=== PATIENT | female | born 1970 | race Two or more races ===

== ENCOUNTER 2020-04-24 14:46 | Inpatient (IN) | payer MEDICAID ==
[~2020-04-24] VITALS: Ht 162.6 cm; Wt 116.3 kg
[2020-04-24 16:15] LABS: Basophils # (auto) 0 10 ^3/uL (0-0.2); Basophils % (auto) 0.6 % (0.0-2.0); Eosinophils # (auto) 0 10 ^3/uL (0-0.8); Eosinophils % (auto) 0.5 % (0.0-7.0); Hematocrit 39.7 % (36.0-46.0); Hemoglobin 12.8 g/dL (12.2-16.2); Lymphocytes # (auto) 1.8 10 ^3/uL (0.4-5.4); Lymphocytes % (auto) 27.9 % (10.0-50.0); Mean Corpuscular Hemoglobin 28.2 pg (28.0-32.0); Mean Corpuscular Hgb Conc. 32.3 g/dL (32.0-36.0); Mean Corpuscular Volume 87.4 fL (80.0-100.0); Monocytes # (auto) 0.6 10 ^3/uL (0-1.3); Monocytes % (auto) 9.3 % (0.0-12.0); Neutrophils # (auto) 3.9 10 ^3/uL (1.6-8.6); Neutrophils % (auto) 61.7 % (37.0-80.0); Nucleated Red Blood Cells % 0.1 %; Platelet Count (auto) 181 10^3/uL (140-450); Red Blood Cells 4.54 10^6/uL (4.0-5.20); Red Cell Distribution Width 15.7 % (11.8-14.3); White Blood Cell 6.3 10^3/uL (4.4-10.8)
[2020-04-24 16:33] LABS: Albumin 3.2 g/dL (3.4-5.0); Anion Gap 8 (5-15); Aspartate Aminotransferase 71 U/L (15-37); BUN/Creatinine Ratio 5.6; Blood Urea Nitrogen 5 mg/dL (7-18); Calcium 8.4 mg/dL (8.5-10.1); Carbon Dioxide 26 mmol/L (21-32); Chloride 104 mmol/L (98-107); GFR African American 85 mL/min; GFR Non-African American 70 mL/min; Glucose 238 mg/dL (74-106); Magnesium 2.2 mg/dL (1.6-2.6); Potassium 3.3 mmol/L (3.5-5.1); Sodium 138 mmol/L (136-145)
[2020-04-24 16:41] LABS: Alanine Aminotransferase 103 U/L (13-56); Alkaline Phosphatase 179 U/L (45-117); Bilirubin, Total 0.5 mg/dL (0.2-1.0); Total Protein 7.5 g/dL (6.4-8.2)
[2020-04-24] MEDS ORDERED: DOXYCYCLINE 100 MG TAB/CAP PO ONE (17:45)
[2020-04-24] MEDS ORDERED: POTASSIUM CHL 20 Meq TABLET PO ONE (17:45)
[2020-04-24] MEDS ORDERED: ACETAMINOPHEN 325 MG TAB PO ONE (17:45)
[2020-04-24] MEDS ORDERED: SODIUM CHLORIDE 0.9% 1,000 ML IVB ONE (17:55)
[2020-04-24] MEDS ORDERED: ASCORBIC ACID 500 MG TAB PO ONE (18:00)
[2020-04-24] MEDS ORDERED: ZINC SULFATE 220mg CAP or TAB PO ONE (18:00)
[2020-04-24 20:46] LABS: INR 0.98 (0.9-1.15); Partial Thromboplastin Time 28.5 sec (23.0-31.2)
[2020-04-24] MEDS ORDERED: SODIUM CHLORIDE 0.9% 1,000 ML IV SCH (21:20)
[2020-04-24] MEDS ORDERED: ONDANSETRON HCL 4 MG/2 ML VIAL IV PRN (21:30)
[2020-04-24] MEDS ORDERED: MORPHINE SULF INJ 2 MG/ML SYRINGE 1ML IV PRN (21:30)
[2020-04-24] MEDS ORDERED: DOCUSATE SOD 100 MG CAP PO PRN (21:30)
[2020-04-24] MEDS ORDERED: ACETAMINOPHEN 325 MG TAB PO PRN (21:30)
[2020-04-24] MEDS ORDERED: ACETAMINOPHEN 500 MG TAB PO PRN (21:30)
[2020-04-24] MEDS ORDERED: DEXTROSE (50%) 50ML SYRG IV PRN (21:30)
[2020-04-24] MEDS ORDERED: HYDROcodone-ACET 5/325MG TAB PO PRN (21:30)
[2020-04-24] MEDS ORDERED: TEMAZEPAM 15 MG CAP PO PRN (21:30)
[2020-04-24] MEDS ORDERED: LORazepam 0.5 MG TAB PO PRN (21:30)
[2020-04-24] MEDS: DexAMETHasone SOD PHOS 10MG/1ML VIAL INJ IV SCH (21:45)
[2020-04-24] MEDS: ALBUTEROL SULF HFA 90MCG INH 200DOSE IN SCH (22:00)
[2020-04-24 22:10] VITALS: BP 176/94
--- NOTE | 2020-04-24 23:36 | NUR ---
Telemetry admit from ER KESHAWN BALLESTEROS admitted to Telemetry unit after SBAR received. Patient oriented to EBONIE MORALES RN primary RN, unit, room, bed, and unit policies regarding patient care and visiting hours. Patient now on continuous telemetry monitoring, tele box # 20 and telemetry reading on arrival to unit is SR 92 bpm. Patient weighed by bedscale and encouraged to call if they need something. All questions and concerns addressed, patient verbalized understanding.
[2020-04-25] VITALS: BP 137/91
[2020-04-25] MEDS: ACCU-CHEK COMFORT CURVE STRIP VI SCH ×7 (00:36→23:37)
[2020-04-25] MEDS: InsuLIN REG 1unit/0.01ml Soln (100units/ml) SC SCH ×7 (00:36→23:32)
[2020-04-25] MEDS ORDERED: ATEN50TA19 PO (01:17)
[2020-04-25 04:17] LABS: Urine Bacteria NONE SEEN /hpf (None Seen); Urine Blood Negative /uL (Negative); Urine Specific Gravity 1.005 (1.001-1.035); Urine WBC 1 /hpf (0 - 5)
[2020-04-25 05:00] VITALS: BP 140/72
[2020-04-25] MEDS: ALBUTEROL SULF HFA 90MCG INH 200DOSE IN SCH (06:00)
--- NOTE | 2020-04-25 06:20 | NUR ---
Respiratory note: Inhaler medication held at this time, pending test results for COVID-19. HR 82, RR 18, SPO2 94% on room air. Breath sounds dim t/o. Pt denies SOB. No s/s of distress.
[2020-04-25 06:42] LABS: Basophils # (auto) 0 10 ^3/uL (0-0.2); Basophils % (auto) 0.5 % (0.0-2.0); Eosinophils # (auto) 0 10 ^3/uL (0-0.8); Eosinophils % (auto) 0.1 % (0.0-7.0); Hematocrit 40.2 % (36.0-46.0); Hemoglobin 13.1 g/dL (12.2-16.2); Lymphocytes # (auto) 1.3 10 ^3/uL (0.4-5.4); Mean Corpuscular Hemoglobin 28.4 pg (28.0-32.0); Mean Corpuscular Hgb Conc. 32.5 g/dL (32.0-36.0); Mean Corpuscular Volume 87.4 fL (80.0-100.0); Monocytes # (auto) 0.3 10 ^3/uL (0-1.3); Neutrophils % (auto) 71.4 % (37.0-80.0); Nucleated Red Blood Cells % 0.2 %; Platelet Count (auto) 193 10^3/uL (140-450); Red Blood Cells 4.59 10^6/uL (4.0-5.20); White Blood Cell 5.6 10^3/uL (4.4-10.8)
--- NOTE | 2020-04-25 07:03 | NUR ---
Report given to dayshift RN patient denies sob distress or pain.
[2020-04-25 07:21] LABS: Albumin 3.4 g/dL (3.4-5.0); Calcium 8.5 mg/dL (8.5-10.1); Magnesium 2.2 mg/dL (1.6-2.6); Potassium 3.9 mmol/L (3.5-5.1)
[2020-04-25 07:25] LABS: BUN/Creatinine Ratio 9.3; Bilirubin, Total 0.4 mg/dL (0.2-1.0); Total Protein 7.9 g/dL (6.4-8.2)
--- NOTE | 2020-04-25 07:26 | NUR ---
Opening Shift Note Assumed care of patient, awake and alert. No S/S of distress/SOB or pain. Instructed on POC and to call for assist PRN, will continue to monitor for changes Q1hr and PRN.
[2020-04-25 09:00] VITALS: BP 157/77
[2020-04-25] MEDS: ENOXAPARIN SOD 40 MG/0.4 ML SYRINGE SC SCH (10:00)
[2020-04-25] MEDS ORDERED: ASCORBIC ACID 1,000 MG TAB PO SCH (10:00)
[2020-04-25] MEDS: DexAMETHasone SOD PHOS 10MG/1ML VIAL INJ IV SCH (10:55)
[2020-04-25] MEDS: ZINC SULFATE 220mg CAP or TAB PO SCH (10:56)
[2020-04-25] MEDS: DOXYCYCLINE 100 MG TAB/CAP PO SCH ×2 (10:56→22:01)
[2020-04-25] MEDS ORDERED: SODIUM CHLORIDE 0.9% 1,000 ML IV SCH (12:45)
[2020-04-25] MEDS ORDERED: hydrALAZINE HCL 20 MG/ML VL IV PRN (12:45)
[2020-04-25 13:00] VITALS: BP 136/91
[2020-04-25 13:12] LABS: CRP High Sensitivity 4.97 mg/dL (< 0.3)
[2020-04-25 17:00] VITALS: BP 131/69
--- NOTE | 2020-04-25 20:00 | NUR ---
Opening Shift Note Assumed care of patient, awake and alert. No S/S of distress/SOB or pain. Instructed on POC and to call for assist PRN, will continue to monitor for changes Q1hr and PRN. bed in low position and call light within reach
[2020-04-25] MEDS: METOPROLOL TARTRATE 25 MG TAB PO SCH (21:59)
[2020-04-25 22:00] VITALS: BP 144/89
--- NOTE | 2020-04-25 23:54 | NUR ---
report given to MYRON Hubbard. Patient transferred with all belongings.no signs of sob distress or pain.
--- NOTE | 2020-04-25 23:55 | NUR ---
assumed care of pt at this time. IV started, pt has no pain, no s/s of distress. room air, skin cdi
[2020-04-26] VITALS (7 sets, daily range): BP systolic 143–152; BP diastolic 86–102
[2020-04-26] MEDS: ACCU-CHEK COMFORT CURVE STRIP VI SCH ×5 (03:50→22:00)
[2020-04-26] MEDS: InsuLIN REG 1unit/0.01ml Soln (100units/ml) SC SCH ×5 (03:53→22:00)
[2020-04-26 07:40] LABS: Potassium 3.6 mmol/L (3.5-5.1)
[2020-04-26 07:50] LABS: Albumin 3.2 g/dL (3.4-5.0); BUN/Creatinine Ratio 16.2; Bilirubin, Total 0.3 mg/dL (0.2-1.0); Calcium 8.6 mg/dL (8.5-10.1); Total Protein 7.5 g/dL (6.4-8.2)
--- NOTE | 2020-04-26 08:45 | NUR ---
ELEVATED BP BP WAS 152/102 AND PATIENT WAS GIVEN APRESOLINE 10 MG IVP PER PRN ORDER. PATIENT C/O FEELING WARM, HAVING HEADACHE AND FEELING WEEK AND DIZZY AFTER. INSTRUCTED PATIENT TO STAY IN BED FOR SAFETY, WILL GIVE TYLENOL PER PRN ORDER FOR C/O HEADACHE. WILL CONTINUE TO MONITOR PATIENT.
[2020-04-26] MEDS: ACETAMINOPHEN 325 MG TAB PO PRN ×2 (09:48→20:02)
[2020-04-26] MEDS: ENOXAPARIN SOD 40 MG/0.4 ML SYRINGE SC SCH (10:00)
[2020-04-26 11:13] LABS: Hepatitis B Surface Antibody Negative
[2020-04-26] MEDS: DOXYCYCLINE 100 MG TAB/CAP PO SCH ×2 (11:33→22:05)
[2020-04-26] MEDS: METOPROLOL TARTRATE 25 MG TAB PO SCH ×2 (11:33→22:12)
[2020-04-26] MEDS: DexAMETHasone SOD PHOS 10MG/1ML VIAL INJ IV SCH (11:34)
[2020-04-26] MEDS: PANTOPRAZOLE 40 MG TAB PO SCH (11:34)
[2020-04-26] MEDS: ZINC SULFATE 220mg CAP or TAB PO SCH (11:40)
[2020-04-26 11:43] LABS: Hepatitis A Total Antibody Negative
[2020-04-26] MEDS ORDERED: LISINOPRIL 20 MG TAB PO ONE (12:30)
[2020-04-26] MEDS ORDERED: guaiFENesin-DM 100/10mg/5ml SYR PO PRN (12:30)
[2020-04-26] MEDS ORDERED: DEXTROSE (50%) 50ML SYRG IV PRN (12:30)
[2020-04-26] MEDS ORDERED: ALBUTEROL SULF 2.5 MG/0.5ML(0.5%) NEB SOLN NEB PRN (12:45)
[2020-04-26] MEDS ORDERED: IPRATROPIUM BROM 0.5 MG/2.5ML INH SOL NEB PRN (12:45)
[2020-04-26] MEDS ORDERED: IOHEXOL 350 MG/ML 100ML IJ ONE (13:35)
[2020-04-26 13:37] LABS: Hepatitis B Core Total AB Negative
[2020-04-26 13:38] LABS: Hepatitis B Surface Antigen Negative (Negative); Hepatitis C Antibody Negative (Negative)
[2020-04-26] MEDS: ASCORBIC ACID 500 MG TAB PO SCH (16:22)
--- NOTE | 2020-04-26 17:10 | NUR ---
NOTIFIED PHARMACIST THAT PATIENT HAD OMNIPAQUE GIVEN IN CT AND SHE HAS SCHEDULED METFORMIN. WILL HOLD METFORMIN FOR 48 HRS.
[2020-04-26] MEDS ORDERED: metFORMIN HYDROCHLORIDE 500 MG TAB PO SCH (18:00)
--- NOTE | 2020-04-26 19:45 | NUR ---
Opening Shift Note Assumed care of patient, awake and alert. No S/S of distress/SOB. The patient c/o an headache which is currently 4/10 in severity. The patient requested Tylenol for pain. Will administer PRN acetaminophen. Bed is locked in lowest position with call light within reach. Instructed on POC and to call for assist PRN, will continue to monitor for changes Q1hr and PRN.
--- NOTE | 2020-04-26 19:50 | NUR ---
Respiratory note: ASSESSED PT FOR PRN MED NEB AT THIS TIME, PT DENIES SOB AT THIS TIME, NO RESP DISTRESS NOTED, NO TX INDICATED. PULSE OX 95% ON RA, HR 85, RR 18, BILATERAL BS CLEAR.
--- NOTE | 2020-04-26 20:40 | NUR ---
PAIN REASSESSMENT The patient states that her headache is "completely gone". Patient is resting comfortably in bed. Will continue to monitor the patient's status.
[2020-04-27 06:00] VITALS: BP 160/97
[2020-04-27 06:24] LABS: Potassium 3.6 mmol/L (3.5-5.1)
[2020-04-27 06:30] VITALS: BP 147/99
[2020-04-27 06:31] LABS: Albumin 3.1 g/dL (3.4-5.0); BUN/Creatinine Ratio 17.6; Bilirubin, Total 0.4 mg/dL (0.2-1.0); Calcium 8.4 mg/dL (8.5-10.1); Total Protein 7.2 g/dL (6.4-8.2)
[2020-04-27] MEDS: ACCU-CHEK COMFORT CURVE STRIP VI SCH ×3 (06:38→17:00)
[2020-04-27] MEDS: InsuLIN REG 1unit/0.01ml Soln (100units/ml) SC SCH ×3 (06:38→17:00)
--- NOTE | 2020-04-27 07:45 | NUR ---
OPENING SHIFT NOTE RECEIVED PATIENT AAOX4, PLEASANT AND COOPERATIVE AND VOICED NO C/P PAIN/ DISCOMFORT. SHIFT ASSESSMENT DONE AND CHARTED. PLAN OF CARE, MEDICATIONS, TREATMENTS AND SAFETY DISCUSSED WITH PATIENT AND PATIENT VERBALIZED UNDERSTANDING. WILL CONTINUE TO MONITOR PATIENT.
[2020-04-27 09:00] VITALS: BP 145/92
[2020-04-27] MEDS ORDERED: LISI-646 PO (09:05)
[2020-04-27] MEDS ORDERED: MET25T PO (09:05)
[2020-04-27] MEDS ORDERED: DOX100T PO (09:05)
[2020-04-27] MEDS ORDERED: ASCO500T11 PO (09:05)
[2020-04-27] MEDS ORDERED: METOPROLOL TARTRATE 25 MG TAB PO SCH (10:00)
[2020-04-27] MEDS ORDERED: LISINOPRIL 20 MG TAB PO SCH (10:00)
[2020-04-27] MEDS: ENOXAPARIN SOD 40 MG/0.4 ML SYRINGE SC SCH (10:00)
[2020-04-27] MEDS: ASCORBIC ACID 500 MG TAB PO SCH (10:08)
[2020-04-27] MEDS: PANTOPRAZOLE 40 MG TAB PO SCH (10:08)
[2020-04-27] MEDS: DOXYCYCLINE 100 MG TAB/CAP PO SCH (10:08)
[2020-04-27 13:00] VITALS: BP 151/91
[2020-04-27] MEDS ORDERED: METF-370 PO (13:19)
[2020-04-27 17:03] VITALS: BP 148/89
--- NOTE | 2020-04-27 18:50 | NUR ---
Discharge instructions given as ordered. Encourage to follow up with PMD as instructed. All questions and concerns addressed. Patient verbalized understanding. Medication reconciliation form completed and copy given to patient. Prescribed medications delivered to patient in her room by [facility] . IV removed with catheter intact, pressure dressing applied. Telemetry unit returned to ICU. Patient taken to vehicle via wheelchair with all personal belongings, accompanied by staff. No distress noted at time of departure.
== END 2020-04-27 18:50 | disposition home or self-care (01) | DRG 137 ==
LOC: ER 14:46 → TELE 14:47 → TELE-EAST 23:58 → TELE-WESTW 04-25 23:55
PROVIDERS: ADMIT Hospitalist; ATTEND Internal Medicine
DX: J15.6 Pneumonia due to other Gram-negative bacteria (principal); I10 Essential (primary) hypertension; E87.6 Hypokalemia; E78.5 Hyperlipidemia, unspecified; E66.01 Morbid (severe) obesity due to excess calories; E11.65 Type 2 diabetes mellitus with hyperglycemia; K76.0 Fatty (change of) liver, not elsewhere classified; R91.8 Other nonspecific abnormal finding of lung field; Z68.41 Body mass index [BMI] 40.0-44.9, adult; Z82.49 Family history of ischemic heart disease and other diseases of the circulatory system; Z90.49 Acquired absence of other specified parts of digestive tract; Z90.89 Acquired absence of other organs; Z20.828 Contact with and (suspected) exposure to other viral communicable diseases
CPT/HCPCS: 36415; 71045; 71275; 76705; 80053; 80061; 81001; 82728; 82962; 83036; 83615; 83735; 84443; 84484; 84702; 85025; 85379; 85610; 85730; 86141; 86704; 86706; 86708; 86803; 87040; 87340; 93005; 94640; 94760; G0378; J1100; J1815

== ENCOUNTER 2020-05-09 17:12 | Emergency (ER) | payer MEDICAID ==
[~2020-05-09] VITALS: Ht 162.6 cm; Wt 111.1 kg
[~2020-05-09 17:12] MED LIST: ASCO500T11 PO; DOX100T PO; LISI-646 PO; MET25T PO; METF-370 PO
[2020-05-09 17:33] VITALS: BP 127/77
== END 2020-05-09 20:22 | disposition home or self-care (01) ==
LOC: ER 17:12
DX: R50.9 Fever, unspecified (principal); R05 Cough; E11.9 Type 2 diabetes mellitus without complications; I10 Essential (primary) hypertension; E78.5 Hyperlipidemia, unspecified; Z79.899 Other long term (current) drug therapy; Z20.828 Contact with and (suspected) exposure to other viral communicable diseases
CPT/HCPCS: 36415; 71045; 87426

== ENCOUNTER → 2020-06-02 | Outpatient (CLI) | payer MEDICAID ==
[2020-06-02 11:00] LABS: Basophils # (auto) 0.1 10 ^3/uL (0-0.2); Basophils % (auto) 1.2 % (0.0-2.0); Eosinophils # (auto) 0.1 10 ^3/uL (0-0.8); Eosinophils % (auto) 2.2 % (0.0-7.0); Hematocrit 42.6 % (36.0-46.0); Hemoglobin 13.6 g/dL (12.2-16.2); Lymphocytes # (auto) 1.8 10 ^3/uL (0.4-5.4); Lymphocytes % (auto) 34.7 % (10.0-50.0); Mean Corpuscular Hemoglobin 27.7 pg (28.0-32.0); Mean Corpuscular Hgb Conc. 31.9 g/dL (32.0-36.0); Mean Corpuscular Volume 86.8 fL (80.0-100.0); Monocytes # (auto) 0.5 10 ^3/uL (0-1.3); Monocytes % (auto) 9.2 % (0.0-12.0); Neutrophils # (auto) 2.8 10 ^3/uL (1.6-8.6); Neutrophils % (auto) 52.7 % (37.0-80.0); Platelet Count (auto) 257 10^3/uL (140-450); Red Blood Cells 4.91 10^6/uL (4.0-5.20); Red Cell Distribution Width 17.5 % (11.8-14.3); White Blood Cell 5.3 10^3/uL (4.4-10.8)
[2020-06-02 11:31] LABS: Calcium 9.4 mg/dL (8.5-10.1); Potassium 3.7 mmol/L (3.5-5.1)
[2020-06-02 11:34] LABS: BUN/Creatinine Ratio 15.6; Bilirubin, Total 0.4 mg/dL (0.2-1.0); Total Protein 8.5 g/dL (6.4-8.2)
== END | disposition home or self-care (01) ==
LOC: LAB 10:43
PROVIDERS: ATTEND Student in an Organized Health Care Education/Training Program
DX: E11.69 Type 2 diabetes mellitus with other specified complication (principal); M25.50 Pain in unspecified joint
CPT/HCPCS: 36415; 80053; 82043; 83036; 84443; 85025; 85652